=== PATIENT | female | born 1975 | race Caucasian/White ===

== ENCOUNTER 2018-12-27 11:50 | Emergency (ER) | payer OTHER ==
--- NOTE | 2018-12-27 12:09 | PHYS DOC ---
Past History Past Medical History: Other Past Surgical History: Other Alcohol Use: None Drug Use: None Adult General Chief Complaint Chief Complaint: MUSCLE SPASM/CRAMP HPI HPI Patient is a 43-year-old female who presents with muscle spasms and cramps. Patient has a history of cerebral palsy. Approximately 2 weeks ago she stopped taking dantrolene due to insurance and preapproval issues. She restarted it approximately 6 days ago but continues to have significant cramping. No other medications have been changed or missed dosage. She reports that the pain is generalized. There are spastic movements throughout. No new trauma. No headache. Pain is moderate to severe.[] Review of Systems Review of Systems Constitutional: Denies fever or chills [] Eyes: Denies change in visual acuity, redness, or eye pain [] HENT: Denies nasal congestion or sore throat [] Respiratory: Denies cough or shortness of breath [] Cardiovascular: No chest pain or palpitations[] GI: Denies abdominal pain, nausea, vomiting, bloody stools or diarrhea [] : Denies dysuria or hematuria [] Musculoskeletal: Denies back pain see history of present illness[] Integument: Denies rash or skin lesions [] Neurologic: Denies headache, focal weakness or sensory changes [] Endocrine: Denies polyuria or polydipsia [] All other systems were reviewed and found to be within normal limits, except as documented in this note. Physical Exam Physical Exam Constitutional: Well developed, well nourished, mild discomfort, non-toxic appearance. [] HENT: Normocephalic, atraumatic, bilateral external ears normal, oropharynx moist, no oral exudates, nose normal. [] Eyes: PERRLA, EOMI, conjunctiva normal, no discharge. [] Neck: Normal range of motion, no tenderness, supple, no stridor. [] Cardiovascular:Heart rate regular rhythm, no murmur [] Lungs & Thorax: Bilateral breath sounds clear to auscultation [] Abdomen: Bowel sounds normal, soft, no tenderness, no masses, no pulsatile masses. [] Skin: Warm, dry, no erythema, no rash. [] Back: No tenderness, no CVA tenderness. [] Extremities: No tenderness, no cyanosis, no clubbing, ROM intact, no edema. [] Neurologic: Alert and oriented X 3, moves all 4 extremities, jerking movements of all 4 extremities,, normal sensory function, no focal deficits noted. [] Psychologic: Affect normal, judgement normal, mood normal. [] Current Patient Data Vital Signs Vital Signs Date Time Temp Pulse Resp B/P (MAP) Pulse Ox O2 Delivery O2 Flow Rate FiO2 12/27/18 12:02 97.6 79 18 95 Room Air EKG EKG [] Radiology/Procedures Radiology/Procedures [] Course & Med Decision Making Course & Med Decision Making Pertinent Labs and Imaging studies reviewed. (See chart for details) ED course: Patient arrived, was placed in bed, and tolerated exam well. She achieved significant pain relief with a half milligram of Ativan. After the return of lab findings, these were discussed with the patient and family who voiced understanding. Further discussion was made with her primary care physician. All questions were answered. Medical decision making: No evidence of urinary tract infection, no evidence of rhabdomyolysis, patient's magnesium is a little bit low but believe that this can be treated as an outpatient.[] Dragon Disclaimer Dragon Disclaimer This electronic medical record was generated, in whole or in part, using a voice recognition dictation system. Departure Departure: Impression: Primary Impression: Cerebral palsy Additional Impressions: Muscle cramps Hypomagnesemia Disposition: 01 HOME, SELF-CARE Condition: IMPROVED Referrals: MISTY BARROSO MD (PCP) Follow-up in 2 days Patient Instructions: Hypomagnesemia, Muscle Cramps Additional Instructions: Follow-up with your regular doctor in 2 days. Return to the ER if worsening discomfort or any other concerns. Your magnesium level was noted to be a little low. The following foods contain high levels of magnesium: Dark chocolate, avocados, nuts including almonds and cashews and Cuban nuts, beans, tofu, pumpkin seeds, flax seeds, Jag seeds, grains like buckwheat and quinoa, salmon, bananas, and leafy greens like Maldonado, spinach, juancarlos greens, turnip greens, and mustard greens. Scripts Lorazepam (ATIVAN) 1 Mg Tablet 1 MG PO QIDPRN PRN for muscle cramps, #30 TAB Prov: ROCAEL KLINE DO 12/27/18 Problem Qualifiers Primary Impression: Cerebral palsy Cerebral palsy type: unspecified type Qualified Codes: G80.9 - Cerebral palsy, unspecified ROCAEL KLINE DO Dec 27, 2018 12:09
[2018-12-27 12:23] LABS: BASO % 0 % (0-3); EOS % 0 % (0-3); HEMATOCRIT 40.3 % (36.0-47.0); HEMOGLOBIN 13.7 g/dL (12.0-15.5); LYMPH # 0.7 x10^3/uL (1.0-4.8); LYMPH % 13 % (24-48); MEAN CORPUSCULAR HEMOGLOBIN 33 pg (25-35); MEAN CORPUSCULAR HGB CONC 34 g/dL (31-37); MEAN CORPUSCULAR VOLUME 96 fL (79-100); MONO # 0.3 x10^3/uL (0.0-1.1); MONO % 6 % (0-9); NEUT # 4.7 x10^3uL (1.8-7.7); NEUT % 81 % (31-73); PLATELET COUNT 257 x10^3/uL (140-400); RED CELL DISTRIBUTION WIDTH 14.5 % (11.5-14.5); WHITE BLOOD COUNT 5.8 x10^3/uL (4.0-11.0)
[2018-12-27 12:39] LABS: ALBUMIN 4.5 g/dL (3.4-5.0); ALBUMIN/GLOBULIN RATIO 1.3 (1.0-1.7); CREATININE 0.8 mg/dL (0.6-1.0); GFR 78.7; MAGNESIUM 1.6 mg/dL (1.8-2.4); POTASSIUM 4.1 mmol/L (3.5-5.1); TOTAL BILIRUBIN 0.4 mg/dL (0.2-1.0); TOTAL PROTEIN 7.9 g/dL (6.4-8.2)
[2018-12-27 13:03] LABS: BACTERIA,URINE FEW /HPF (0-FEW); BILIRUBIN,URINE NEG (NEG); CLARITY,URINE CLEAR; COLOR,URINE YELLOW; GLUCOSE,URINE NEG (NEG); NITRITE,URINE NEG (NEG); RBC,URINE OCC /HPF (0-2); SQUAMOUS EPITHELIAL CELL,UR MOD /LPF; U PREG PATIENT NEGATIVE (NEG); UROBILINOGEN,URINE 0.2 mg/dL (0.2 mg/dL); WBC,URINE OCC /HPF (0-4)
[2018-12-27] MEDS ORDERED: LORA-254 PO (13:16)
[2018-12-27 13:39] VITALS: BP 142/85
== END 2018-12-27 13:38 | disposition home or self-care (01) ==
LOC: ER 11:50
DX: G80.9 Cerebral palsy, unspecified (principal); E83.42 Hypomagnesemia
CPT/HCPCS: 36415; 80053; 81001; 81025; 82550; 83735; 85025; 96374; 99283; J2060

== ENCOUNTER 2020-06-19 22:13 | Emergency (ER) | payer MEDICARE, OTHER ==
[~2020-06-19] VITALS: Ht 149.9 cm; Wt 46.8 kg
[~2020-06-19 22:13] MED LIST: LORA-254 PO
--- NOTE | 2020-06-19 22:17 | PHYS DOC ---
Past History Past Medical History: Other Past Medical History Cerebral palsy Past Surgical History: Other Alcohol Use: None Drug Use: None General Adult HPI: HPI: ". Slipped and fell.. hurt my Lt. hand .. and wrist... this finger really hurts..." Patient is a 45 year old female cerebral palsy patient who presents with above hx and complaints of fall injury Lt. hand. FOOSH mechanism of injury to Rt. hand. Patient distal since duration is equal to right hand. Patient is right- hand dominant. Does have sensation in left deltoid area. No other injury reported. No recent history mental suppression. No history of recent travel. No specific contacts. Normally follows with Dr. Barroso. Review of Systems: Review of Systems: Constitutional: Denies fever or chills Eyes: Denies change in visual acuity HENT: Denies nasal congestion or sore throat Respiratory: Denies cough or shortness of breath Cardiovascular: Denies chest pain or edema GI: Denies abdominal pain, nausea, vomiting, bloody stools or diarrhea : Denies dysuria Musculoskeletal: Complains of left hand injury Integument: Denies rash Neurologic: Denies headache, focal weakness or sensory changes Endocrine: Denies polyuria or polydipsia Lymphatic: Denies swollen glands Psychiatric: Denies depression or anxiety Heart Score: Risk Factors: Risk Factors: DM, Current or recent (<one month) smoker, HTN, HLP, family history of CAD, obesity. Risk Scores: Score 0 - 3: 2.5% MACE over next 6 weeks - Discharge Home Score 4 - 6: 20.3% MACE over next 6 weeks - Admit for Clinical Observation Score 7 - 10: 72.7% MACE over next 6 weeks - Early Invasive Strategies Family History: Family History: Noncontributory Allergies: Allergies: Allergies Coded Allergies Type Severity Reaction Last Updated Verified morphine Allergy Unknown 12/27/18 Yes Physical Exam: PE: Constitutional: Moderate acute distress, non-toxic appearance. [] HENT: Normocephalic, atraumatic, bilateral external ears normal, oropharynx moist, no oral exudates, nose normal. [] Eyes: PERRLA, EOMI, conjunctiva normal, no discharge. [] Neck: Normal range of motion, no tenderness, supple, no stridor. [] Cardiovascular:Heart rate regular rhythm, no murmur [] Lungs & Thorax: Bilateral breath sounds equal at the apex on auscultation [] Abdomen: Bowel sounds normal, soft, no tenderness, no masses, no pulsatile mas ses. [] Skin: Warm, dry, no erythema, no rash. [] Back: No tenderness, no CVA tenderness. [] Extremities: No tenderness, no cyanosis, no clubbing, ROM intact, no edema. [] Except findings and right hand. Contractures Neurologic: Alert and oriented X 3, normal motor function, normal sensory funct ion, no focal deficits noted. [] Discoordination spasmic type movements Psychologic: Affect anxious , judgement normal, mood normal. [] EKG: EKG: [] Radiology/Procedures: Radiology/Procedures: [][place] [id number] IMAGING REPORT Signed PATIENT: KARENA AARON ACCOUNT: [id number] : 1975 LOCATION: ER AGE: 45 SEX: F EXAM STATUS: PRE ER ORD. PHYSICIAN: JESSICA HERNÁNDEZ MD REASON: FALL, MID HAND PAIN PROCEDURE: HAND LEFT 3V EXAM: 1. LEFT HAND 3 VIEWS. 2. LEFT WRIST 3 VIEWS. HISTORY: Fall, head and wrist pain. COMPARISON: None. FINDINGS: No acute fractures are identified in the wrist. There is a chronic yolk fracture deformity of the distal radial metaphysis. Alignment is maintained. Joint spaces are maintained. Cysts along the ulnar aspect of the lunate are consistent with ulnocarpal impaction. There is a nondisplaced oblique fracture of the third metacarpal diaphysis. Alignment is maintained. Joint spaces are maintained. IMPRESSION: 1. Nondisplaced oblique fracture of the third metacarpal diaphysis. 2. Findings consistent with ulnocarpal impaction. Electronically signed by: Rosa M Hewitt MD (06/19/2020 10:47 PM) [facility] DICTATED AND SIGNED BY: JUAN HEWITT MD DATE: 06/19/20 0110 CC: MISTY BARROSO MD; JESSICA HERNÁNDEZ MD ~ Course & Med Decision Making: Course & Med Decision Making Pertinent Labs and Imaging studies reviewed. (See chart for details) Ice, elevation, rest, splint Tylenol and ibuprofen for pain. For marked pain may take Vicoprofen. Follow-up with Dr. Barroso. Follow-up with Ortho. Distal neurovascular intact after application of splint. Impression: 1. History of cerebral palsy 2. Trip and fall 3. Left third metacarpal fracture [] Dragon Disclaimer: Dragon Disclaimer: This electronic medical record was generated, in whole or in part, using a voice recognition dictation system. Departure Departure: Disposition: 01 HOME/RESIDENCE PRIOR TO ADM Condition: STABLE Referrals: MISTY BARROSO MD (PCP) Scripts Hydrocodone/Ibuprofen (HYDROCODONE-IBUPROFEN 7.5-200 ) 1 Each Tablet 1 TAB PO PRN Q6HRS PRN for PAIN, #30 TAB 0 Refills Prov: JESSICA HERNÁNDEZ MD 06/19/20 Justification of Admission: Justification of Admission: Justification of Admission Dx: N/A Dragon Disclaimer This chart was dictated in whole or in part using Voice Recognition software in a busy, high-work load, and often noisy Emergency Department environment. It may contain unintended and wholly unrecognized errors or omissions. Dragon Disclaimer This chart was dictated in whole or in part using Voice Recognition software in a busy, high-work load, and often noisy Emergency Department environment. It may contain unintended and wholly unrecognized errors or omissions. Dragon Disclaimer This chart was dictated in whole or in part using Voice Recognition software in a busy, high-work load, and often noisy Emergency Department environment. It may contain unintended and wholly unrecognized errors or omissions. JESSICA HERNÁNDEZ MD Jun 19, 2020 22:17
[2020-06-19] MEDS ORDERED: HYDR-1179 PO (22:43)
--- NOTE | 2020-06-19 22:50 | RAD ---
EXAM: 1. LEFT HAND 3 VIEWS. 2. LEFT WRIST 3 VIEWS. HISTORY: Fall, head and wrist pain. COMPARISON: None. FINDINGS: No acute fractures are identified in the wrist. There is a chronic yolk fracture deformity of the distal radial metaphysis. Alignment is maintained. Joint spaces are maintained. Cysts along the ulnar aspect of the lunate are consistent with ulnocarpal impaction. There is a nondisplaced oblique fracture of the third metacarpal diaphysis. Alignment is maintained. Joint spaces are maintained. IMPRESSION: 1. Nondisplaced oblique fracture of the third metacarpal diaphysis. 2. Findings consistent with ulnocarpal impaction. Electronically signed by: Rosa M Hewitt MD (06/19/2020 10:47 PM) [facility]
[2020-06-19] MEDS ORDERED: oxyCODONE/APAP 5/325 1 TAB TABLET PO ONE (23:00)
[2020-06-19 23:15] VITALS: BP 132/80
== END 2020-06-19 23:20 | disposition home or self-care (01) ==
LOC: ER 22:13
DX: S62.393A Other fracture of third metacarpal bone, left hand, initial encounter for closed fracture (principal); G80.9 Cerebral palsy, unspecified; Z88.5 Allergy status to narcotic agent; W01.0XXA Fall on same level from slipping, tripping and stumbling without subsequent striking against object, initial encounter; Y93.89 Activity, other specified; Y92.89 Other specified places as the place of occurrence of the external cause; Y99.8 Other external cause status
CPT/HCPCS: 73110; 73130; 99284

== ENCOUNTER → 2020-06-26 | Outpatient (CLI) | payer MEDICARE, OTHER ==
[2020-06-19 23:15] VITALS: BP 132/80
[~2020-06-26] MED LIST changes: +HYDR-1179 PO
--- NOTE | 2020-06-26 16:37 | RAD ---
Three-view study of the left wrist Clinical indications: Pain. Follow-up fracture. COMPARISON: June 19, 2020. FINDINGS: Again seen is a nondisplaced oblique fracture of the third metacarpal shaft which remains nonhealed. No lytic process is seen. Old healed fracture of the distal left radius is seen. Scaphoid bone appears intact. IMPRESSION: Nonhealed nondisplaced immobilized third metacarpal fracture. Electronically signed by: Jose Manuel Nava MD (06/26/2020 4:34 PM) [id number]
== END | disposition home or self-care (01) ==
LOC: DXRAD 12:41
DX: S62.308D Unspecified fracture of other metacarpal bone, subsequent encounter for fracture with routine healing (principal); X58.XXXD Exposure to other specified factors, subsequent encounter
CPT/HCPCS: 73110

== ENCOUNTER → 2020-07-03 | Outpatient (CLI) | payer MEDICARE, OTHER ==
[2020-06-19 23:15] VITALS: BP 132/80
--- NOTE | 2020-07-03 15:29 | RAD ---
3 views left hand compared to similar exam dated June 192019 for follow-up on third metacarpal fracture. FINDINGS: There is redemonstration of an oblique fracture through the third metacarpal diaphysis. Anatomic alignment is preserved. Evaluation of callus formation is limited by overlying cast. IMPRESSION: 1. Redemonstrated fracture of the third metacarpal with stable alignment. Electronically signed by: Jude Kowalski MD (07/03/2020 3:26 PM) [id number]
== END | disposition home or self-care (01) ==
LOC: DXRAD 09:30
DX: S62.308D Unspecified fracture of other metacarpal bone, subsequent encounter for fracture with routine healing (principal); X58.XXXD Exposure to other specified factors, subsequent encounter
CPT/HCPCS: 73130

== ENCOUNTER → 2020-07-17 | Outpatient (CLI) | payer MEDICARE, OTHER ==
[2020-06-19 23:15] VITALS: BP 132/80
--- NOTE | 2020-07-17 11:10 | RAD ---
Study: CR HAND LEFT 3V Indication: Follow-up third metacarpal fracture. Comparison: 07/03/2020 Findings: Casting material has been removed in the interim. Redemonstrated spiral fracture at the mid to proximal third metacarpal. No solid bridging callus is seen. On the oblique view the fracture defect is slightly wider than the comparison but alignment is no different. No newly seen fracture. Maintained joint spaces. Impression: Redemonstrated third metacarpal fracture. No solid bridging callus is identified. Particularly on the oblique view the fracture is more conspicuous/slightly wider though this could be secondary to a healing response and overall alignment has not significantly changed. Electronically signed by: TRACY KANG MD (07/17/2020 11:07 AM) [id number]
== END ==
LOC: DXRAD 10:39
PROVIDERS: ATTEND Orthopaedic Surgery
DX: S62.353D Nondisplaced fracture of shaft of third metacarpal bone, left hand, subsequent encounter for fracture with routine healing (principal); X58.XXXD Exposure to other specified factors, subsequent encounter
CPT/HCPCS: 73130

== ENCOUNTER → 2020-08-07 | Outpatient (CLI) | payer MEDICARE, OTHER ==
--- NOTE | 2020-08-07 10:24 | RAD ---
3 views left hand compared to similar exam dated 07/16/2020 for closed fracture of the left third metacarpal. FINDINGS: Oblique fracture of the third metacarpal diaphysis is redemonstrated and unchanged. No new fractures. IMPRESSION: 1. Stable oblique fracture of the third metacarpal diaphysis. There is subtle but incompletely callus formation. Electronically signed by: Jude Kowalski MD (08/07/2020 10:20 AM) [id number]
== END ==
LOC: DXRAD 09:49
PROVIDERS: ATTEND Physician Assistant
DX: S62.353D Nondisplaced fracture of shaft of third metacarpal bone, left hand, subsequent encounter for fracture with routine healing (principal); X58.XXXD Exposure to other specified factors, subsequent encounter
CPT/HCPCS: 73130

== ENCOUNTER → 2020-09-04 | Outpatient (CLI) | payer MEDICARE, OTHER ==
--- NOTE | 2020-09-04 16:50 | RAD ---
EXAM: LEFT HAND 3 VIEWS. HISTORY: Fracture follow-up. COMPARISON: 08/07/2020. FINDINGS: Periosteal reaction about the oblique/spiral fracture of the third metacarpal metaphysis indicates early healing. Alignment is unchanged with mild ulnar displacement of the distal fracture fracture. Changes of ulnocarpal impaction are noted. A chronic healed fracture deformity is suspected along the distal radial metaphysis. Joint spaces and alignment are otherwise maintained. IMPRESSION: 1. Healing fracture of the third metacarpal diaphysis in unchanged alignment. 2. Ulnocarpal impaction. Electronically signed by: Rosa M Hewitt MD (09/04/2020 3:59 PM) [id number]
== END ==
LOC: DXRAD 09:21
PROVIDERS: ATTEND Orthopaedic Surgery
DX: S62.307A Unspecified fracture of fifth metacarpal bone, left hand, initial encounter for closed fracture (principal); X58.XXXA Exposure to other specified factors, initial encounter; Y93.89 Activity, other specified; Y92.89 Other specified places as the place of occurrence of the external cause; Y99.8 Other external cause status
CPT/HCPCS: 73130

== ENCOUNTER 2021-02-23 15:30 | Emergency (ER) | payer MEDICARE, OTHER ==
[~2021-02-23] VITALS: Ht 149.9 cm; Wt 43.0 kg
[2021-02-23] MEDS ORDERED: LIDOCAINE 2%/EPI 1:100,000 20 ML VIAL. IJ ONE (15:45)
[2021-02-23] MEDS ORDERED: CEPHALEXIN 250 MG CAPSULE PO ONE (15:45)
[2021-02-23] MEDS ORDERED: NEOMY/BACITR/POLYMYXIN OINT PACKET. TP ONE (15:45)
[2021-02-23] MEDS ORDERED: LIDOCAINE 1%/EPI 1:100,000 20 ML VIAL. ONE (15:53)
--- NOTE | 2021-02-23 15:59 | PHYS DOC ---
Past History Past Medical History: Arthritis, Asthma, Other Additional Past Medical Histor: cerebral palsy Past Surgical History: Other Additional Past Surgical Histo: tubes in her ears, back was fused Smoking: Non-smoker Alcohol Use: None Drug Use: None General Adult EDM: Chief Complaint: EARACHE/EAR PAIN HPI: HPI: 46-year-old female presents with past medical history of cerebral palsy presents with report of left earlobe laceration after getting her earring caught on something and having it ripped out. Patient reports occurred at approximately 1100 this morning. Denies significant bleeding. Patient denies other injury. Reports last tetanus booster greater than 5 years ago. Denies use of blood thinners. Review of Systems: Review of Systems: Constitutional: Denies fever or chills Eyes: Denies redness or eye pain HENT: Denies nasal congestion or sore throat Respiratory: Denies cough or shortness of breath Cardiovascular: Denies chest pain or palpitations GI: Denies abdominal pain, nausea, or vomiting : Denies dysuria or hematuria Musculoskeletal: Denies back pain or joint pain Integument: Denies rash; reports left earlobe laceration Neurologic: Denies headache, focal weakness or sensory changes Complete systems were reviewed and found to be within normal limits, except as documented in this note. Current Medications: Current Meds: Current Medications Medications (Trade) Dose Ordered Sig/Jorgito Start Time Stop Time Status Last Admin Dose Admin Cephalexin HCl (Keflex) 500 mg 1X ONCE 02/23/21 15:45 02/23/21 15:46 UNV Diphtheria/ Pertussis/Tetanus Vacc (ADACEL TDap SYRINGE) 0.5 ml ONCE ONCE 02/23/21 15:45 02/23/21 15:46 UNV Lidocaine/ Epinephrine (Xylocaine 1%-Epi 1:100,000) 20 ml STK-MED ONCE 02/23/21 15:53 02/23/21 15:53 DC Lidocaine/ Epinephrine (Xylocaine 2%-Epi 1:100,000) 20 ml 1X ONCE 02/23/21 15:45 02/23/21 15:46 UNV Neomycin/ Polymyxin/ Bacitracin (Triple Antibiotic Ointment) 1 pkt 1X ONCE 02/23/21 15:45 02/23/21 15:46 UNV Allergies: Allergies: Allergies Coded Allergies Type Severity Reaction Last Updated Verified Penicillins Allergy Unknown 02/23/21 Yes morphine Allergy Unknown 02/23/21 Yes Physical Exam: PE: Constitutional: Well developed, well nourished, no acute distress HENT: Normocephalic, earlobe laceration as below Eyes: Conjunctiva normal, no discharge Neck: Normal range of motion, supple Lungs & Thorax: No respiratory distress, equal chest rise and fall Skin: Warm, dry, no erythema, no rash, left earlobe laceration measuring 3cm through and through- no active bleeding Extremities: Extremity atrophy noted, no edema Neurologic: Alert and oriented X 3, speech slurred but understandable (baseline) Psychologic: Affect normal, judgment normal Current Patient Data: Vital Signs: Vital Signs Date Time Temp Pulse Resp B/P (MAP) Pulse Ox O2 Delivery O2 Flow Rate FiO2 02/23/21 15:30 98.4 106 18 136/94 (108) 95 Room Air EKG: EKG: [] Radiology/Procedures: Radiology/Procedures: [] Heart Score: C/O Chest Pain: N/A Course & Med Decision Making: Course & Med Decision Making Patient presents with left earlobe laceration after getting her earring caught and having it ripped out. Linear laceration appreciated. No active bleeding noted. Tetanus updated. Wound cleaned, copiously irrigated, and cosmetic repair performed. Dressing applied. Empiric antibiotic provided. Patient stable for discharge with outpatient follow-up with PCP. Discussed findings and plan with patient, who acknowledges understanding and agreement. Brian Disclaimer: Brian Disclaimer: This electronic medical record was generated, in whole or in part, using a voice recognition dictation system. Laceration/Wound Repair Laceration/Wound Repair : Wound Location: head (Left lower earlobe) Wound's Depth, Shape: linear Wound Length (cm): 3 Wound Explored: clean Irrigated w/ Saline (ccs): 200 Anesthesia: Lidocaine w/ Epi (1%) Volume Anesthetic (ccs): 2 Wound Debrided: minimal Wound Repaired With: sutures Suture Size/Type: 6:0, nylon Number of Sutures: 7 Sterile Dressing Applied?: Yes Progress Verbal consent obtained. Time out performed. Hand hygiene utilized. Wound cleaned with ChloraPrep. Anesthesia obtained via a 30-gauge hypodermic needle wi th (2) mL's of lidocaine 1% with epinephrine. Copious irrigation performed. Wound well approximated with 6-0 Nylon x 7 simple interrupted. Patient tolerated procedure well and without difficulty. Empiric antibiotic ointment applied prior to sterile dressing. Departure Departure: Impression: Primary Impression: Laceration of left earlobe Qualified Codes: S01.312A - Laceration without foreign body of left ear, initial encounter Disposition: HOME / SELF CARE / HOMELESS Condition: STABLE Referrals: MISTY BARROSO MD (PCP) Patient Instructions: Laceration Care, Adult, [id number] Additional Instructions: Do not soak your wound. You may shower. Clean wound daily with soap and water. Change dressing 2 times daily. Use over the counter antibiotic ointment with each dressing change. Sutures need to be removed in 7-10 days. Present to your family doctor or local urgent care for removal. You may also present to the ED but it will be an additional visit/charge. After suture removal you may use Vitamin E ointment to soften the wound and prevent scarring. Please take antibiotics as prescribed to completion. Scripts Cephalexin (CEPHALEXIN) 500 Mg Tablet 1 TAB PO QID for Ear laceration for 7 Days, #28 TAB Prov: BREANNE ESCOBEDO DO 02/23/21 BREANNE ESCOBEDO DO February 23, 2021 15:59
[2021-02-23] MEDS ORDERED: LIDOCAINE 1%/EPI 1:100,000 10 ML VIAL. INJ ONE (16:00)
[2021-02-23] MEDS ORDERED: DIPH,PERTUSS(ACELL),TET VAC/PF 0.5 ML SYRINGE. VAX IM ONE (16:15)
[2021-02-23] MEDS ORDERED: LIDOCAINE 1%/EPI 1:100,000 20 ML VIAL. IJ ONE (16:15)
[2021-02-23] MEDS ORDERED: CEPH500T PO (16:22)
[2021-02-23 16:59] VITALS: BP 128/87
== END 2021-02-23 16:59 | disposition home or self-care (01) ==
LOC: ER 15:30
DX: S01.312A Laceration without foreign body of left ear, initial encounter (principal); M19.90 Unspecified osteoarthritis, unspecified site; G80.9 Cerebral palsy, unspecified; Z88.0 Allergy status to penicillin; Z88.5 Allergy status to narcotic agent; W49.04XA Ring or other jewelry causing external constriction, initial encounter; Y93.89 Activity, other specified; Y92.89 Other specified places as the place of occurrence of the external cause; Y99.8 Other external cause status
CPT/HCPCS: 12013; 90471; 90715; 99283

== ENCOUNTER 2021-03-07 19:55 | Emergency (ER) | payer MEDICARE, OTHER ==
[~2021-03-07] VITALS: Ht 149.9 cm; Wt 42.2 kg
[~2021-03-07 19:55] MED LIST changes: +CEPH500T PO
[2021-03-07 20:16] VITALS: BP 147/78
--- NOTE | 2021-03-07 21:21 | PHYS DOC ---
Past History Past Medical History: Arthritis, Asthma, Other Additional Past Medical Histor: cerebral palsy Past Surgical History: Other Additional Past Surgical Histo: tubes in her ears, back was fused Smoking: Non-smoker Alcohol Use: None Drug Use: None Adult General Chief Complaint Chief Complaint: LACERATION/AVULSION HPI HPI Patient is a 46-year-old female who comes in for a wound check. States she had cut her earlobe about 12 days ago had it sutured and and had the sutures removed. She was coming in wondering if her earlobe would grow back together and not scar. Denies any other medical complaints. Review of Systems Review of Systems Review of systems otherwise unremarkable except noted in HPI. Allergies Allergies Allergies Coded Allergies Type Severity Reaction Last Updated Verified Penicillins Allergy Unknown 02/23/21 Yes morphine Allergy Unknown 02/23/21 Yes Physical Exam Physical Exam Constitutional: Well developed, well nourished, no acute distress, non-toxic appearance. [] HENT: Normocephalic, atraumatic, left earlobe with half centimeter bifurcation that is completely healed., oropharynx moist, no oral exudates, nose normal. [] Neurologic: Alert and oriented X 3, normal motor function, normal sensory function, no focal deficits noted. [] Psychologic: Affect normal, judgement normal, mood normal. [] Current Patient Data Vital Signs Vital Signs Date Time Temp Pulse Resp B/P (MAP) Pulse Ox O2 Delivery O2 Flow Rate FiO2 03/07/21 20:16 97.2 98 16 147/78 (101) 100 Room Air EKG EKG [] Radiology/Procedures Radiology/Procedures [] Heart Score C/O Chest Pain: No Risk Factors: Risk Factors: DM, Current or recent (<one month) smoker, HTN, HLP, family history of CAD, obesity. Risk Scores: Risk Factors: DM, Current or recent (<one month) smoker, HTN, HLP, family history of CAD, obesity. Course & Med Decision Making Course & Med Decision Making Patient is a 46-year-old female who comes in for a wound check Vital signs not concerning. Physical exam noted above. Wound healed completely with no signs of infection. Reassured patient. Advised to follow-up with primary care. Gave return pre cautions to the ED. Patient grateful, verbalized understanding and agreed with plan of discharge. [] Dragon Disclaimer Dragon Disclaimer This electronic medical record was generated, in whole or in part, using a voice recognition dictation system. Departure Departure: Impression: Primary Impression: Visit for wound check Disposition: HOME / SELF CARE / HOMELESS Condition: GOOD Referrals: MISTY BARROSO MD (PCP) Additional Instructions: Please call your primary care physician first thing in the morning to set up a follow-up visit. As discussed your ear healed nicely and there are no signs of infection. Please come back to the emergency department with new or concerning symptoms as discussed. MONTRELL MARTÍNEZ MD Mar 07, 2021 21:21
== END 2021-03-07 21:30 | disposition home or self-care (01) ==
LOC: ER 19:55
DX: S01.312D Laceration without foreign body of left ear, subsequent encounter (principal); M19.90 Unspecified osteoarthritis, unspecified site; J45.909 Unspecified asthma, uncomplicated; Z88.0 Allergy status to penicillin; Z88.5 Allergy status to narcotic agent; X58.XXXD Exposure to other specified factors, subsequent encounter
CPT/HCPCS: 99281